=== PATIENT | female | born 1970 | race Hispanic/Latino ===

== ENCOUNTER 2018-01-06 11:33 | Emergency (ER) | payer OTHER ==
[~2018-01-06] VITALS: Ht 154.9 cm; Wt 63.5 kg
[2018-01-06] MEDS ORDERED: KETOROLAC TROMETHAMINE 60 MG/2 ML VIAL IM ONE (12:30)
[2018-01-06] MEDS ORDERED: DEXAMETHASONE SOD PHOS 10 MG/1 ML VIAL IV ONE (12:30)
--- NOTE | 2018-01-06 14:13 | Diagnostic Imaging Report ---
Exams: Head, maxillofacial and cervical spine CTs without IV contrast History: Fall, trauma, syncope Comparison studies:None Technique: Axial images were obtained from the brain, face and cervical spine. Coronal and sagittal reconstructions obtained from the axial data. Dose modulation, iterative reconstruction, and/or weight based adjustment of the mA/kV was utilized to reduce the radiation dose to as low as reasonably achievable. Intravenous contrast: None Findings: Head CT: Scalp: Midline frontal scalp laceration. Bones: No fractures, blastic or lytic lesions. Brain sulci: Appropriate for age. Ventricles: Normal in size and configuration. No hydrocephalus. Parenchyma: Beam hardening artifact from the skull base at the level of the inferior kellie limits evaluation at this level. No other abnormal densities. No masses, acute hemorrhage or acute or chronic cortical vascular insults. Sellar/suprasellar region: No abnormalities Craniocervical junction: The foramen magnum is patent. No Chiari one malformation. Maxillofacial CT: Soft tissues: No abnormalities.. Bones: No fractures or bony abnormalities. . Orbits: No abnormalities. Paranasal sinuses: Clear aside from minimal mucosal thickening along the maxillary sinus alveolar recess ease. Cervical spine CT: Fractures: None. Soft tissue injuries: No gross acute abdomen bodies. Atlantoaxial articulation: Intact. Alignment: Normal lordosis. No scoliosis. Cervicomedullary junction: No abnormalities. Patent foramen magnum. Soft tissues: No abnormalities. Vertebrae: No fractures, infection or neoplasm. Degenerative changes: Multilevel facet arthrosis which is greater on the right compared to the left. Mild right C4-C5 foraminal stenosis due to uncovertebral and moderate right facet arthrosis. Minimal right C5-C6 foraminal stenosis due to uncovertebral facet arthrosis. No significant canal stenosis. Incidental findings: Calcified 8 mm nodule in the right thyroid lobe. IMPRESSION: Head CT: 1. Inferior midline frontal scalp laceration without underlying fracture. 2. No acute intracranial abnormalities. Facial CT: 1. Inferior midline frontal scalp laceration as above. 2. No maxillofacial fractures. Cervical spine CT: 1. No cervical spine fracture subluxation. 2. Degenerative changes as described. 3. Incidental 8 mm calcified right thyroid lobe nodule. 4. Please note, cannot adequately evaluate ligament, spinal cord and or vascular abnormalities cannot be excluded on the basis of this examination. Signed by: Dr. Gagandeep Gonzalez M.D. on 01/06/2018 2:10 PM
[2018-01-06] MEDS ORDERED: TETANUS/DIPHTHERIA TOX ADULT 0.5 ML SYR IM ONE (14:30)
[2018-01-06 14:50] VITALS: BP 160/94
== END 2018-01-06 14:57 | disposition home or self-care (01) ==
LOC: ER 11:33
DX: S00.81XA Abrasion of other part of head, initial encounter (principal); W01.0XXA Fall on same level from slipping, tripping and stumbling without subsequent striking against object, initial encounter; Y93.01 Activity, walking, marching and hiking
CPT/HCPCS: 70450; 70486; 72125; 90471; 90714; 99283; J1100; J1885

== ENCOUNTER 2018-02-18 21:39 | Emergency (ER) | payer SELFPAY ==
[~2018-02-18] VITALS: Ht 154.9 cm; Wt 63.5 kg
--- OUTSIDE RECORDS SUMMARY | 2018-02-18 21:43 | XMS REPORT ---
Author Author [facility] Address Unknown Phone Unavailable Care Team Providers Care Water Proofer Name Role Phone Bogdan MORALES Unavailable Unavailable Problems This patient has no known problems. Allergies, Adverse Reactions, Alerts This patient has no known allergies or adverse reactions. Medications This patient has no known medications. Results Test Description Test Time Test Comments Text Results Atomic Results Result Comments CT MAXIO FAC/PARANAS WO 2018-01-06 13:58:00 [place] [address] Patient Name: EDINSON IRVING MR #: [id number] : 1970 Age/Sex: 47/F Req #: [id number] Adm Physician: Ordered by: ANNETTE KHAN INSURANCE TERRITORY MANAGER Report #: [id number] Location: ER Room/Bed: Procedure: [id number] CT/CT MAXIO FAC/PARANAS WO Exam Date: 01/06/18 Exam Time: 1300 REPORT STATUS: Signed Exams: Head, maxillofacial and cervical spine CTs without IV contrast History: Fall, trauma, syncope Comparison studies:None Technique: Axial images were obtained from the brain, face and cervical spine. Coronal and sagittal reconstructions obtained from the axial data. Dose modulation, iterative reconstruction, and/or weight based adjustment of the mA/kV was utilized to reduce the radiation dose to as low as reasonably achievable. Intravenous contrast: None Findings: Head CT: Scalp: Midline frontal scalp laceration. Bones: No fractures, blastic or lytic lesions. Brain sulci: Appropriate for age. Ventricles: Normal in size and configuration. No hydrocephalus. Parenchyma: Beam hardening artifact from the skull base at the level of the inferior kellie limits evaluation at thi s level. No other abnormal densities. No masses, acute hemorrhage or acute or chronic cortical vascular insults. Sellar/suprasellar region: No abnormalities Craniocervical junction: The foramen magnum is patent. No Chiari one malformation. Maxillofacial CT: Soft tissues: No abnormalities.. Bones: No fractures or bony abnormalities. . Orbits: No abnormalities. Paranasal sinuses: Clear aside from minimal mucosal thickening along the maxillary sinus alveolar recess ease. Cervical spine CT: Fractures: None. Soft tissue injuries: No gross acute abdomen bodies. Atlantoaxial articulation: Intact. Alignment: Normal lordosis. No scoliosis. Cervicomedullary junction: No abnormalities. Patent foramen magnum. Soft tissues: No abnormalities. Vertebrae: No fractures, infection or neoplasm. Degenerative changes: Multilevel facet arthrosis which is greater on the right compared to the left. Mild right C4-C5 foraminal stenosis due to uncovertebral and moderate right facet arthrosis. Minimal right C5-C6 foraminal stenosis due to uncovertebral facet arthrosis. No significant canal stenosis. Incidental findings: Calcified 8 mm nodule in the right thyroid lobe. IMPRESSION: Head CT: 1. Inferior midline frontal scalp laceration without underlying fracture. 2. No acute intracranial abnormalities. Facial CT: 1. Inferior midline frontal scalp laceration as above. 2. No maxillofacial fractures. Cervical spine CT: 1. No cervical spine fracture subluxation. 2. Degenerative changes as described. 3. Incidental 8 mm calcified right thyroid lobe nodule. 4. Please note, cannot adequately evaluate ligament, spinal cord and or vascular abnormalities cannot be excluded on the basis of this examination. Signed by: Dr. Marc Gonzalez M.D. on 01/06/2018 2:10 PM Dictated By: MARC GONZALEZ MD 1410 Transcribed By: TIFFANIE on 01/06/18 1410 COPY TO: ANNETTE KHAN NP CT CERVICAL SPINE WO 2018-01-06 13:58:00 [place] [address] Patient Name: EDINSON IRVING MR #: [id number] : 1970 Age/Sex: 47/F [facility] #: [id number] Req #: [id number] Adm Physician: Ordered by: ANNETTE KHAN NP Report #: [id number] Location: ER Room/Bed: Procedure: [id number] CT/CT CERVICAL SPINE WO Exam Date: 01/06/18 Exam Time: 1300 REPORT STATUS: Signed Exams: Head, maxillofacial and cervical spine CTs without IV contrast History: Fall, trauma, syncope Comparison studies:None Technique: Axial images were obtained from the brain, face and cervical spine. Coronal and sagittal reconstructions obtained from the axial data. Dose modulation, iterative reconstruction, and/or weight based adjustment of the mA/kV was utilized to reduce the radiation dose to as low as reasonably achievable. Intravenous contrast: None Findings: Head CT: Scalp: Midline frontal scalp laceration. Bones: No fractures, blastic or lytic lesions. Brain sulci: Appropriate for age. Ventricles: Normal in size and configuration. No hydrocephalus. Parenchyma: Beam hardening artifact from the skull base at the level of the inferior kellie limits evaluation at this level. No other abnormal densities. No masses, acute hemorrhage or acute or chronic cortical vascular insults. Sellar/suprasellar region: No abnormalities Craniocervical junction: The foramen magnum is patent. No Chiari one malformation. Maxillofacial CT: Soft tissues: No abnormalities.. Bones: No fractures or bony abnormalities. . Orbits: No abnormalities. Paranasal sinuses: Clear aside from minimal mucosal thickening along the maxillary sinus alveolar recess ease. Cervical spine CT: Fractures: None. Soft tissue injuries: No gross acute abdomen bodies. Atlantoaxial articulation: Intact. Alignment: Normal lordosis. No scoliosis. Cervicomedullary junction: No abnormalities. Patent foramen magnum. Soft tissues: No abnormalities. Vertebrae: No fractures, infection or neoplasm. Degenerative changes: Multilevel facet arthrosis which is greater on the right compared to the left. Mild right C4-C5 foraminal stenosis due to uncovertebral and moderate right facet arthrosis. Minimal right C5-C6 foraminal stenosis due to uncovertebral facet arthrosis. No significant canal stenosis. Incidental findings: Calcified 8 mm nodule in the right thyroid lobe. IMPRESSION: Head CT: 1. Inferior midline frontal scalp laceration without underlying fracture. 2. No acute intracranial abnormalities. Facial CT: 1. Inferior midline frontal scalp laceration as above. 2. No maxillofacial fractures. Cervical spine CT: 1. No cervical spine fracture subluxation. 2. Degenerative changes as described. 3. Incidental 8 mm calcified right thyroid lobe nodule. 4. Please note, cannot adequately evaluate ligament, spinal cord and or vascular abnormalities cannot be excluded on the basis of this examination. Signed by: Dr. Marc Gonzalez M.D. on 01/06/2018 2:10 PM Dictated By: MARC GONZALEZ MD 1410 Transcribed By: TIFFANIE on 01/06/18 1410 COPY TO: ANNETTE KHAN NP CT BRAIN WO 2018-01-06 13:58:00 [place] [address] Patient Name: EDINSON IRVING MR #: [id number] : 1970 Age/Sex: 47/F Req #: [id number] Adm Physician: Ordered by: ANNETTE KHAN NP Report #: [id number] Location: ER Room/Bed: Procedure: [id number] CT/CT BRAIN WO Exam Date: 01/06/18 Exam Time: 1300 REPORT STATUS: Signed Exams: Head, maxillofacial and cervical spine CTs without IV contrast History: Fall, trauma, syncope Comparison studies:None Technique: Axial images were obtained from the brain, face and cervical spine. Coronal and sagittal reconstructions obtained from the axial data. Dose modulation, iterative reconstruction, and/or weight based adjustment of the mA/kV was utilized to reduce the radiation dose to as low as reasonably achievable. Intravenous contrast: None Findings: Head CT: Scalp: Midline frontal scalp laceration. Bones: No fractures, blastic or lytic lesions. Brain sulci: Appropriate for age. Ventricles: Normal in size and configuration. No hydrocephalus. Parenchyma: Beam hardening artifact from the skull base at the level of the inferior kellie limits evaluation at this level. No other abnormal densities. No masses, acute hemorrhage or acute or chronic cortical vascular insults. Sellar/suprasellar region: No abnormalities Craniocervical junction: The foramen magnum is patent. No Chiari one malformation. Maxillofacial CT: Soft tissues: No abnormalities.. Bones: No fractures or bony abnormalities. . Orbits: No abnormalities. Paranasal sinuses: Clear aside from minimal mucosal thickening along the maxillary sinus alveolar recess ease. Cervical spine CT: Fractures: None. Soft tissue injuries: No gross acute abdomen bodies. Atlantoaxial articulation: Intact. Alignment: Normal lordosis. No scoliosis. Cervicomedullary junction: No abnormalities. Patent foramen magnum. Soft tissues: No abnormalities. Vertebrae: No fractures, infection or neoplasm. Degenerative changes: Multilevel facet arthrosis which is greater on the right compared to the left. Mild right C4-C5 foraminal stenosis due to uncovertebral and moderate right facet arthrosis. Minimal right C5-C6 foraminal stenosis due to uncovertebral facet arthrosis. No significant canal stenosis. Incidental findings: Calcified 8 mm nodule in the right thyroid lobe. IMPRESSION: Head CT: 1. Inferior midline frontal scalp laceration without underlying fracture. 2. No acute intracranial abnormalities. Facial CT: 1. Inferior midline frontal scalp laceration as above. 2. No maxillofacial fractures. Cervical spine CT: 1. No cervical spine fracture subluxation. 2. Degenerative changes as descri bed. 3. Incidental 8 mm calcified right thyroid lobe nodule. 4. Please note, cannot adequately evaluate ligament, spinal cord and or vascular abnormalities cannot be excluded on the basis of this examination. Signed by: Dr. Marc Gonzalez M.D. on 01/06/2018 2:10 PM Dictated By: MARC GONZALEZ MD 1410 Transcribed By: TIFFANIE on 01/06/18 1410 COPY TO: ANNETTE KHAN NP
[2018-02-18] MEDS ORDERED: PANTOPRAZOLE 40 MG 10ML VIAL IV STA (22:14)
[2018-02-18] MEDS ORDERED: ONDANSETRON HCL INJ 2 MG/ML VIAL IV STA (22:14)
[2018-02-18] MEDS ORDERED: LIDOCAINE VISC 2% SOLN 15 ML UDC PO ONE (22:15)
[2018-02-18] MEDS ORDERED: BELLADONNA ALK/PHENOBARBITAL 5 ML UDC PO ONE (22:15)
[2018-02-18] MEDS ORDERED: ONDANSETRON HCL 4 MG ORAL DISINTEGRATING TAB PO ONE (22:15)
[2018-02-18] MEDS ORDERED: MAGNESIUM/ALUMINUM/SIMETHICONE 30 ML UDC PO ONE (22:15)
[2018-02-18 22:56] LABS: BASOPHILS # (AUTO) 0.1 (0.0-0.1); BASOPHILS % 0.4 % (0.0-1.0); EOSINOPHILS % 0.2 % (0.0-6.0); HEMATOCRIT 40.3 % (34.2-44.1); HEMOGLOBIN 13.7 g/dL (12.0-16.0); LYMPHOCYTES # (AUTO) 2.9 (1.0-3.2); LYMPHOCYTES % 22.7 % (18.0-39.1); MEAN CORPUSCULAR HEMOGLOBIN 32.9 pg (28-32); MEAN CORPUSCULAR VOLUME 96.9 fL (81-99); MONOCYTES # (AUTO) 0.6 (0.2-0.8); MONOCYTES % 4.8 % (4.4-11.3); NEUTROPHILS # (AUTO) 9.3 (2.1-6.9); NEUTROPHILS % 71.4 % (38.7-80.0); PLATELET COUNT 331 x10e3/uL (140-360); RED BLOOD COUNT 4.16 x10e6/uL (3.6-5.1); RED CELL DISTRIBUTION WIDTH 12.6 % (11.7-14.4)
[2018-02-18 23:05] LABS: BILIRUBIN,URINE NEGATIVE (NEGATIVE); CLARITY,URINE CLOUDY (CLEAR); COLOR,URINE YELLOW (YELLOW); KETONES,URINE TRACE (NEGATIVE); LEUKOCYTE ESTERASE ,URINE NEGATIVE (NEGATIVE); NITRITE,URINE NEGATIVE (NEGATIVE); PROTEIN,URINE DIPSTICK NEGATIVE (NEGATIVE); URINE UROBILINOGEN 0.2 mg/dL (0.2 - 1)
[2018-02-18 23:11] LABS: ALANINE AMINOTRANSFERASE 18 IU/L (0-55); ALBUMIN 4.3 g/dL (3.5-5.0); ALBUMIN/GLOBULIN RATIO 1.6 (0.8-2.0); ALKALINE PHOSPHATASE 61 IU/L (40-150); AMYLASE 91 U/L (25-125); ANION GAP 13.5 mmol/L (8-16); BLOOD UREA NITROGEN 15 mg/dL (7-26); BUN/CREATININE RATIO 21 (6-25); CALCIUM 9.4 mg/dL (8.4-10.2); CARBON DIOXIDE 25 mmol/L (22-29); CHLORIDE 101 mmol/L (98-107); EST GLOMERULAR FILTRATION RATE > 60 ML/MIN (60-); GLUCOSE 104 mg/dL (74-118); LIPASE 63 U/L (8-78); POTASSIUM 3.5 mmol/L (3.5-5.1); SODIUM 136 mmol/L (136-145)
[2018-02-18 23:18] LABS: CREATINE KINASE MB 1.5 ng/mL (0-5.0)
[2018-02-18 23:21] LABS: BACTERIA,URINE MODERATE /HPF; EPITHELIAL CELLS,URINE FEW /LPF; RBC,URINE 0-5 /HPF (0-5)
[2018-02-18 23:22] LABS: MUCUS,URINE FEW (RARE)
== END 2018-02-19 00:02 | disposition home or self-care (01) ==
LOC: ER 21:39
DX: R10.13 Epigastric pain (principal); R11.0 Nausea; K29.20 Alcoholic gastritis without bleeding; N30.90 Cystitis, unspecified without hematuria; F17.210 Nicotine dependence, cigarettes, uncomplicated
CPT/HCPCS: 36415; 80053; 81001; 82150; 82550; 82553; 83690; 84484; 85025; 99283; J2405